=== PATIENT | female | born 2000 | race Caucasian/White ===

== ENCOUNTER 2018-05-14 10:06 | Emergency (ER) | payer SELFPAY ==
[2018-05-14 10:09] VITALS: BP 130/69; PULSE 85; TEMP 98.6
[2018-05-14] MEDS ORDERED: BACTRIM DS 8001 TAB PO (10:43)
== END 2018-05-14 11:00 | disposition home or self-care (01) ==
LOC: COL.ER 10:06
DX: L03.115 Cellulitis of right lower limb (principal)

== ENCOUNTER 2021-05-14 14:03 | Emergency (ER) | payer BC ==
[~2021-05-14] VITALS: Ht 157.5 cm; Wt 131.8 kg
[~2021-05-14 14:03] MED LIST: BACTRIM DS 8001 TAB PO
[2021-05-14 14:08] VITALS: TEMP 99.7
[2021-05-14 14:50] LABS: BASO % 0.1 % (0.0-2.0); GRAN # 6.4 (1.4-6.5); GRAN % 85.5 % (42.2-75.2); HEMATOCRIT 39.9 % (37.0-47.0); HEMOGLOBIN 13.3 g/dl (12.5-16.0); LYMPH # 0.8 (1.2-3.4); LYMPH % 10.4 % (20.0-51.0); MEAN CELL VOLUME 85 fl (80.0-100.0); MEAN CORPUSCULAR HEMOGLOBIN 28 pg (27.0-31.0); MEAN CORPUSCULAR HGB CONC 33 g/dl (33.0-37.0); MEAN PLATELET VOLUME 11.6 fl (7.4-10.4); MONO # 0.3 (0.1-0.6); MONO % 3.6 % (1.7-9.3); PLATELET COUNT 155 K/mm3 (130-400); RED BLOOD COUNT 4.72 M/mm3 (4.10-5.30); REDCELL DISTRIBUTION WIDTH-CV 13.1 % (11.5-14.5)
[2021-05-14 15:00] LABS: ALBUMIN 4.1 gm/dL (3.5-5.0); BILIRUBIN,TOTAL 0.4 mg/dL (0.0-1.0); CALCIUM 8.4 mg/dL (8.4-10.2); CREATININE, serum 0.8 (0.52-1.25); POTASSIUM 3.7 mmol/L (3.4-5.0); TOTAL PROTEIN 7.6 gm/dL (6.4-8.2)
[2021-05-14] MEDS ORDERED: ZOFRAN ODT4 MG PO (16:29)
[2021-05-14 16:50] VITALS: BP 138/74; PULSE 112
== END 2021-05-14 17:00 | disposition home or self-care (01) ==
LOC: COL.ER 14:03
PROVIDERS: Physician Assistant
DX: U07.1 COVID-19 (principal)
CPT/HCPCS: J0780; J1885; J7030